=== PATIENT | male | born 1995 | race Caucasian/White ===

== ENCOUNTER 2019-03-24 20:23 | Emergency (ER) | payer OTHER ==
[~2019-03-24] VITALS: Ht 177.8 cm; Wt 137.9 kg
[2019-03-24] MEDS ORDERED: BUSPIRONE HCL10 MG PO (22:59)
[2019-03-25] MEDS ORDERED: OMEPRAZOLE20 MG PO (01:21)
--- NOTE | 2019-03-25 18:33 | EKG ---
[facility] [address] [place] [address] Signed Normal sinus rhythm with sinus arrhythmia No previous ECGs available Confirmed by MILTON ROY MD ([id number]) on 03/25/2019 6:32:52 PM Electronically Signed By: MILTON ROY MD 03/25/19 1833 PATIENT NAME: WILI LUI Electrocardiogram DATE OF : [birth year] PHYSICIAN: MILTON ROY MD REPORT #: [id number] REPORT IS CONFIDENTIAL AND NOT TO BE RELEASED WITHOUT AUTHORIZATION
== END 2019-03-25 01:44 | disposition home or self-care (01) ==
LOC: ED 20:23
DX: R07.2 Precordial pain (principal); Z79.899 Other long term (current) drug therapy
CPT/HCPCS: 71045; 80053; 83735; 84484; 85025; 85379; 93005; 93010; 96374; 96375; 99284-25; C9113; J2405

== ENCOUNTER 2019-03-26 15:48 | Emergency (ER) | payer OTHER ==
[~2019-03-26] VITALS: Ht 177.8 cm; Wt 137.9 kg
--- OUTSIDE RECORDS SUMMARY | ~2019-03-26 | XMS | Clinical Summary ---
Demographics + + + | Address | [address] | | | [place] [address] | + + + | Home Phone | | + + + | Preferred Language | Unknown | + + + | Marital Status | Single | + + + | Islam Affiliation | Unknown | + + + | Race | Unknown | + + + | Ethnic Group | Unknown | + + + Author + + + | Author | [facility] | | | and [place] | + + + | Organization | [facility] | | | and [place] | + + + | Address | Unknown | + + + | Phone | Unavailable | + + + Support + + +---------+ + | Name | Relationship | Address | Phone | + + +---------+ + | Myra Lewis | ECON | Unknown | | + + +---------+ + Care Team Providers + +------+ + | Care Informatics Application Analyst Name | Role | Phone | + +------+ + | Alexandru Ascencio MD | PCP | | + +------+ + Allergies No Known Allergies Medications + + + +---------+------+------+-------+ | Medication | Sig | Dispensed | Refills | Star | End | Statu | | | | | | t | Date | s | | | | | | Date | | | + + + +---------+------+------+-------+ | IBUPROFEN PO | Take 2 capsules by | | 0 | | | Activ | | | mouth as needed. | | | | | e | + + + +---------+------+------+-------+ | omeprazole | Take 1 tablet by | 15 | 1 | 03/2 | | Activ | | (PRILOSEC) 20 mg | mouth every morning | tablet | | 3/20 | | e | | TBECIndications: | (before breakfast). | | | 17 | | | | Epigastric pain | | | | | | | + + + +---------+------+------+-------+ Active Problems No known active problems Social History + +-------+ +--------+------+ | Tobacco Use | Types | Packs/Day | Years | Date | | | | | Used | | + +-------+ +--------+------+ | Never Smoker | | | | | + +-------+ +--------+------+ + +---+---+---+ | Smokeless Tobacco: | | | | | Current User | | | | + +---+---+---+ + + | Comments: occasionally chew, has tried cigarettes | + + + + + | Sex Assigned at | Date Recorded | | | | + + + | Not on file | | + + + + + + + | Job Start Date | Occupation | Industry | + + + + | Not on file | Not on file | Not on file | + + + + + + + + | Travel History | Travel Start | Travel End | + + + + + + | No recent travel history available. | + + Last Filed Vital Signs + + + + | Vital Sign | Reading | Time Taken | + + + + | Blood Pressure | 117/67 | 09/13/20161213 PDT | + + + + | Pulse | 64 | 09/13/20164 PDT | + + + + | Temperature | 37.4 C (99.3 F) | 09/13/20161213 PDT | + + + + | Respiratory Rate | 16 | 09/13/20161213 PDT | + + + + | Oxygen Saturation | 97% | 09/13/20161213 PDT | + + + + | Inhaled Oxygen | - | - | | Concentration | | | + + + + | Weight | 125.2 kg (276 lb) | 09/13/20161213 PDT | + + + + | Height | 175.3 cm (5' 9") | 09/13/20161213 PDT | + + + + | Body Mass Index | 40.76 | 09/13/20161213 PDT | + + + + Plan of Treatment + + + + + | Health Maintenance | Due Date | Last Done | Comments | + + + + + | Vaccine: | | | | | Dtap/Tdap/Td (1 - | 6 | | | | Tdap) | | | | + + + + + | Vaccine: Influenza | | | | | (#1) | 9 | | | + + + + + Results Not on filefrom Last 3 Months Advance Directives Patient has advance care planning documents on file. For more information, please contact:Debi [facility] and [facility] [place] [place] [address]
--- OUTSIDE RECORDS SUMMARY | ~2019-03-26 | XMS | Clinical Summary ---
Demographics + + + | Address | [address] | | | [place] [address] | + + + | Home Phone | | + + + | Preferred Language | Unknown | + + + | Marital Status | Single | + + + | Sikhism Affiliation | Unknown | + + + | Race | Unknown | + + + | Ethnic Group | Unknown | + + + Author + + + | Author | [facility] | | | and [place] | + + + | Organization | [facility] | | | and [...] Team Providers + +------+ + | Care Top Polisher Name | Role | Phone | + [...] on file. For more information, please contact:Debi [facility] and [facility] [place] [address]
[~2019-03-26 15:48] MED LIST: BUSPIRONE HCL10 MG PO; OMEPRAZOLE20 MG PO
--- OUTSIDE RECORDS SUMMARY | 2019-03-26 15:50 | XMS ---
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 Beckie has no Care Guidelines for this patient. [place] VIS[facility] COUNT (12 MO.) [facility] TOTAL 2 NOTE: Visits indicate total known visits. ED/C VISIT TRACKING (12 MO.) 03/26/2019 15:[address] [facility] [place] TYPE: Emergency COMPLAINT: - CHEST PAIN 03/24/2019 20:24 [facility] [place] TYPE: Emergency COMPLAINT: - CHEST/HEAD/LEFT ARM PAIN INPATIENT VISIT TRACKING (12 MO.) No inpatient visits to display in this time frame [email or web address]
--- NOTE | 2019-03-27 13:10 | EKG ---
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
== END 2019-03-26 17:50 | disposition home or self-care (01) ==
LOC: ED 15:48
DX: R07.2 Precordial pain (principal); Z79.899 Other long term (current) drug therapy
CPT/HCPCS: 71045; 80053; 84484; 85025; 93005; 93010; 99285-25

== ENCOUNTER 2024-10-07 13:48 | Emergency (ER) | payer OTHER ==
[~2024-10-07] VITALS: Ht 177.8 cm; Wt 162.9 kg
[2024-10-07] MEDS ORDERED: DIPHTH,PERTUSS(ACELL),TET VAC 0.5 ML SYRINGE IM ONE (15:30)
[2024-10-07] MEDS ORDERED: CEPHALEXIN500 M1 PO (18:30)
[2024-10-07 18:43] VITALS: BP 131/66
== END 2024-10-07 18:52 | disposition home or self-care (01) ==
LOC: ED 13:48
DX: S61.012A Laceration without foreign body of left thumb without damage to nail, initial encounter (principal); W26.0XXA Contact with knife, initial encounter; Y99.0 Civilian activity done for income or pay
CPT/HCPCS: 12001; 90471; 90715; 99282-25